=== PATIENT | male | born 1965 | race African-American/Black ===

== ENCOUNTER 2016-03-12 17:08 | Emergency (ER) ==
[2016-03-12 17:17] VITALS: BP 173/99; TEMP 99.7; BMI 64.5
[2016-03-12] MEDS ORDERED: DECADRON 4 MG/ML SDV IM STA (17:23)
--- NOTE | 2016-03-12 17:47 | ED.PDOC ---
General ED Provider: Dr. NICOLE PINZON Chief Complaint: Respiratory Complaint Stated Complaint: cough, cold symptoms Time Seen by Physician: 17:11 Mode of Arrival: Walk-In Information Source: Patient Exam Limitations: No limitations Primary Care Provider: VANDANA LEE Nursing and Triage Documentation Reviewed and Agree: Yes Respiratory Complaint Exam - Respiratory Complaint/Exam Onset/Duration: 1 week Symptoms Are: Still present Timing: Intermittent Initial Severity: Moderate Current Severity: Mild Location: Throat Character: Reports: Non-productive cough Aggravating: Reports: Weather Alleviating: Reports: None Associated Signs and Symptoms: Reports: Nasal congestion, Sinus discomfort, Sore throat. Denies: Rapid breathing, Dyspnea, Fever, Chills, Chest pain, Pleuritic chest pain, Wheezing, Hemoptysis, Dizziness, Calf pain, Calf swelling , Edema, URI, Hoarseness, Vomiting, Weight loss, Decreased oral intake, Increased thirst, Increased appetite, Increased urination Related History: Reports: Similar episode History of Healthcare-Acquired Pneumonia: No Related Surgical History: Reports: None Pulmonary Embolism Risk Factors: None Pseudomonas Risk Factors: Reports: None Tuberculosis Risk Factors: Reports: None Status Asthmaticus Risk Factors: Reports: None Home Oxygen Use: No Recent Stress Test: No Recent Echo/LV Function: No Current Antibiotic Use: No Current Asthma Medication Use: No Respiratory Distress: None Inadequate Respiratory Effort: No Dysphagia Present: No Stridor Present: No JVD Present: No Accessory Muscle Use: No Retractions: Not Present Diminished Breath Sounds: No Sinus Tenderness: None Grunting Respirations: No Kussmaul Respirations: No Differential Diagnoses: Pneumonia, Bronchitis, Lower Resp. Infection Review of Systems - Review Of Systems Constitutional: Reports: No symptoms Eyes: Reports: No symptoms Ears, Nose, Mouth, Throat: Reports: No symptoms Respiratory: Reports: Cough Cardiac: Reports: No symptoms GI: Reports: No symptoms : Reports: No symptoms Musculoskeletal: Reports: No symptoms Skin: Reports: No symptoms Neurological: Reports: No symptoms Endocrine: Reports: No symptoms Hematologic/Lymphatic: Reports: No symptoms All Other Systems: Reviewed and Negative Past Medical History - Past Medical History Endocrine: Reports: None Cardiovascular: Reports: None Respiratory: Reports: None Hematological: Reports: None Gastrointestinal: Reports: None Genitourinary: Reports: None Neuro/Psych: Reports: None Musculoskeletal: Reports: Back Pain, Joint Pain Cancer: Reports: None Other Pertinent Past Medical History: Obesity - Surgical History General Surgical History: Reports: Tonsillectomy, Adenoidectomy - Family History Family History: Reports: Other (Obesity ) - Social History Smoking Status: Former smoker Hx Substance Use: No Alcohol Screening: Occasionally Physical Exam - Physical Exam Appearance: Well-appearing, No pain distress, Well-nourished Eyes: OBDULIA, EOMI, Conjunctiva clear ENT: Ears normal, Nose normal, Oropharynx normal Respiratory: Airway patent, Breath sounds clear, Breath sounds equal, Respirations nonlabored Cardiovascular: RRR, Pulses normal, No rub, No murmur GI/: Soft, Nontender, No masses, Bowel sounds normal, No Organomegaly Musculoskeletal: Normal strength, ROM intact, No edema, No calf tenderness Skin: Warm, Dry, Normal color Neurological: Sensation intact, Motor intact, Reflexes intact, Cranial nerves intact, Alert, Oriented Psychiatric: Affect appropriate, Mood appropriate Critical Care Note - Critical Care Note Total Time (mins): 0 Course - Course Orders, Labs, Meds: Orders Category Date Time Status STREP SCREEN Stat LAB 03/12/16 17:25 Received Dexamethasone 4 mg/ml Inj [Decadron 4 mg/ml Sdv] MEDS 03/12/16 17:23 Discontinued 8 mg IM ONCE STA CHEST, 2 VIEWS PA & LAT Stat RADS 03/12/16 17:23 Taken Medications Discontinued Medications Generic Name Dose Route Start Last Admin Trade Name Mansi PRN Reason Stop Dose Admin Dexamethasone Sodium Phosphate 8 mg 03/12/16 17:23 03/12/16 17:43 Decadron 4 Mg/Ml Sdv IM 03/12/16 17:24 8 mg ONCE STA Administration Vital Signs: Temp Pulse Resp BP Pulse Ox 03/12/16 17:09 99.7 F H 77 20 173/99 H 94 L Departure - Departure Time of Disposition: 18:00 Disposition: HOME SELF-CARE Discharge Problem: Bronchitis Instructions: Acute Bronchitis (ED) Condition: Good Pt referred to PMD for follow-up: No Additional Instructions: Please call your Family Physician as soon as possible to schedule a follow-up appointment. Allergies/Adverse Reactions: Allergies moxifloxacin HCl [From Avelox] Adverse Reaction (Verified 03/12/16 17:18) Home Medications: Ambulatory Orders Ibuprofen 800 mg PO TID #30 tablet 01/23/15 Medical Marijuana 1 gm INH DIRECTED PRN 01/23/15
--- NOTE | 2016-03-12 23:43 | DI ---
EXAM: Chest, two views, 03/12/2016 HISTORY: Cough COMPARISON: None. FINDINGS / IMPRESSION: Cardiomediastinal contours appear within normal limits. No pulmonary consol idation, effusion or pneumothorax No acute cardiopulmonary process.
== END 2016-03-12 18:08 | disposition home or self-care (01) ==
LOC: ED 17:08
DX: J20.9 Acute bronchitis, unspecified (principal)
CPT/HCPCS: 87651; 87880; 96372; 99282

== ENCOUNTER 2017-02-01 13:42 | Emergency (ER) | payer OTHER ==
[2017-02-01 13:42] VITALS: BMI 67.3
[2017-02-01 13:48] VITALS: TEMP 98.6
--- NOTE | 2017-02-01 14:51 | ED.PDOC ---
General ED Provider: Dr. ALBARO VELASQUEZ Chief Complaint: Hypertension Stated Complaint: "Bubbly feeling in ears when blowing nose"; congestion, scratchy throat; also hypertension while at [facility] earlier. Time Seen by Physician: 14:30 Mode of Arrival: Walk-In Information Source: Patient Exam Limitations: No limitations Primary Care Provider: VANDANA LEE Nursing and Triage Documentation Reviewed and Agree: Yes Review of Systems - Review Of Systems Constitutional: Reports: Chills Ears, Nose, Mouth, Throat: Reports: Ear pain, Nose discharge Respiratory: Reports: Cough Cardiac: Reports: No symptoms All Other Systems: Reviewed and Negative Past Medical History - Past Medical History Endocrine: Reports: None Cardiovascular: Reports: None Respiratory: Reports: None Hematological: Reports: None Gastrointestinal: Reports: None Genitourinary: Reports: None Neuro/Psych: Reports: None Musculoskeletal: Reports: Back Pain, Joint Pain Cancer: Reports: None Other Pertinent Past Medical History: Obesity - Surgical History General Surgical History: Reports: Tonsillectomy, Adenoidectomy - Family History Family History: Reports: Other (Obesity ) - Social History Smoking Status: Former smoker Hx Substance Use: No Alcohol Screening: Occasionally Physical Exam - Physical Exam Appearance: Well-appearing Eyes: OBDULIA, EOMI ENT: Ears normal Neck: Supple Respiratory: Airway patent, Breath sounds clear, Breath sounds equal Cardiovascular: RRR, Pulses normal GI/: Soft, Nontender Musculoskeletal: Normal strength, ROM intact Skin: Warm, Dry, Normal color Neurological: Sensation intact, Motor intact Psychiatric: Affect appropriate, Mood appropriate Interpretation - EKG Interpretation Time of EKG #1: 18:04 Rate: Normal Rhythm: Sinus Ectopy: None ST Segment: Normal Interpretation: 1st degree block; no acute changes Re-Evaluation - Re-Evaluation Time of Re-Evaluation: 17:30 Status: Improved (Blood pressure still concerning Mom and patient; reassurred patient that readings at that time were not concerning for emergent HTN) Vital Signs Stable: Yes Appearance: NAD Lungs: Clear Neuro: Alert and Oriented X3 Physician Notification - Case Discussed Physician Notified: Dr. Jackson for Dr. Lee Time of Notification: 17:50 (Set forth plan to monitor BP and F/U with Dr. Lee) Critical Care Note - Critical Care Note Total Time (mins): 10 Course - Course Orders, Labs, Meds: Lab Review 02/01/17 15:28 Influenza A (Rapid) Negative Influenza B (Rapid) Negative Orders Category Date Time Status EKG-(ED ONLY) Stat CARDIO 02/01/17 17:58 Completed MOLECULAR GROUP A STREP Stat LAB 02/01/17 15:28 Results RAPID FLU A/B Stat LAB 02/01/17 15:28 Completed STREP SCREEN Stat LAB 02/01/17 15:28 Results Meclizine HCl [Antivert] MEDS 02/01/17 16:01 Discontinued 25 mg PO ONCE STA Medications Discontinued Medications Generic Name Dose Route Start Last Admin Trade Name Freq PRN Reason Stop Dose Admin Meclizine HCl 25 mg 02/01/17 16:01 02/01/17 16:09 Antivert PO 02/01/17 16:02 Not Given ONCE STA Re[prted negative Strep Vital Signs: Temp Pulse Resp BP Pulse Ox 02/01/17 15:27 56 L 129/67 02/01/17 13:42 98.6 F 68 20 199/126 H 97 Departure - Departure Time of Disposition: 15:57 Disposition: HOME SELF-CARE Discharge Problem: Viral illness Instructions: Upper Respiratory Infection (ED) Condition: Good Pt referred to PMD for follow-up: Yes (Call for appointment) Additional Instructions: Tylenol and/or Ibuprofen for fever or discomfiture. Follow up with primary care as needed; call for appointment. Fill prescription for Catapres 0.1 mg; get BP machine - take medication and recheck BP after 30 minutes. If BP is 170 over 90, or above, take another Catapres and repeat BP in 30 minutes. Document each reading and take Catapres as needed to maintain BP as planned. Make appointment with Dr. Lee - preferably with 3 days of BP readings in order to get regular BP medication/diagnosis. Allergies/Adverse Reactions: Allergies moxifloxacin HCl [From Avelox] Adverse Reaction (Verified 02/01/17 13:50) Home Medications: Ambulatory Orders Ibuprofen 800 mg PO TID #30 tablet 01/23/15 Medical Marijuana 1 gm INH DIRECTED PRN 01/23/15 Disposition Discussed With: Patient
[2017-02-01 15:28] VITALS: BP 129/67
[2017-02-01 15:53] LABS: FLU INTERNAL QC INTERNAL QC VALID; RAPID FLU A NEGATIVE (NEGATIVE); RAPID FLU B NEGATIVE (NEGATIVE)
[2017-02-01] MEDS: ANTIVERT PO STA (16:09)
== END 2017-02-01 18:25 | disposition home or self-care (01) ==
LOC: ED 13:42
DX: B34.9 Viral infection, unspecified (principal); I10 Essential (primary) hypertension; E66.9 Obesity, unspecified
CPT/HCPCS: 87651; 87804; 87880; 93005; 93010; 99283

== ENCOUNTER 2017-02-08 16:44 | Emergency (ER) ==
[2017-02-08 16:50] VITALS: BP 139/88; TEMP 98.6; BMI 65.9
--- NOTE | 2017-02-08 18:12 | ED.PDOC ---
General <VANDANA BAKER - Last Filed: 02/08/17 20:35> Stated Complaint: patient states he had sinus infection 3 weeks ago. now is in his chest and headache with sore throat. also has been battling high blood pressure. was seen in er and given clonidine for blood pressure. he was also seen at [facility] and all tests were ok. he was placed on antibiotic and was doing better until this morning he started having bodyaches and chills then sweating. states he is unsure if he has run a fever. [ End ]98.6 63 20 98% 139/88 nifedipine cefdinir mm ibup Time Seen by Physician: 18:14 Mode of Arrival: Walk-In Information Source: Patient, Family Exam Limitations: No limitations Nursing and Triage Documentation Reviewed and Agree: No Reviewed sepsis parameters & appropriate labs ordered?: No System Inflammatory Response Syndrome: Not Applicable System Inflammatory Response Syndrome: Not Applicable <JOHN PRUITT JR - Last Filed: 02/08/17 20:47> ED Provider: Dr. JOHN PRUITT JR Chief Complaint: Hypertension Primary Care Provider: VANDANA LEE Sepsis Protocol: For patient's 13 years and over: Temp is 96.8 and below OR 101 and greater Pulse >90 BPM Resp >20/minute Acutely Altered Mental Status Are patient's symptoms suggestive of a new infection, such as: -Pneumonia -Skin, Soft Tissue -Endocarditis -UTI -Bone, Joint Infection -Implantable Device -Acute Abdominal Infection -Wound Infection -Meningitis -Blood Stream Catheter Infection -Unknown Review of Systems - Review Of Systems Constitutional: Reports: Chills, Fever Eyes: Reports: No symptoms Ears, Nose, Mouth, Throat: Reports: No symptoms Respiratory: Reports: Cough Cardiac: Reports: No symptoms GI: Reports: No symptoms : Reports: No symptoms Musculoskeletal: Reports: No symptoms Skin: Reports: No symptoms Neurological: Reports: No symptoms Endocrine: Reports: No symptoms Hematologic/Lymphatic: Reports: No symptoms All Other Systems: Reviewed and Negative <VANDANA BAKER - Last Filed: 02/08/17 20:35> Past Medical History - Past Medical History Previously Healthy: No Endocrine: Reports: Other Cardiovascular: Reports: Hypertension Respiratory: Reports: Unknown Hematological: Reports: Unknown Gastrointestinal: Reports: Unknown Genitourinary: Reports: Unknown Neuro/Psych: Reports: Unknown Musculoskeletal: Reports: Unknown Cancer: Reports: Unknown - Surgical History General Surgical History: Reports: Unknown - Family History Family History: Reports: Unknown <VANDANA BAKER - Last Filed: 02/08/17 20:35> - Past Medical History Endocrine: Reports: None Cardiovascular: Reports: None Respiratory: Reports: None Hematological: Reports: None Gastrointestinal: Reports: None Genitourinary: Reports: None Neuro/Psych: Reports: None Musculoskeletal: Reports: Back Pain, Joint Pain Cancer: Reports: None Other Pertinent Past Medical History: Obesity - Surgical History General Surgical History: Reports: Tonsillectomy, Adenoidectomy - Family History Family History: Reports: Other (Obesity ) - Social History Smoking Status: Former smoker Hx Substance Use: No Alcohol Screening: Occasionally <JOHN PRUITT JR - Last Filed: 02/08/17 20:47> Physical Exam - Physical Exam Appearance: Well-appearing, No pain distress, Well-nourished Eyes: OBDULIA, EOMI, Conjunctiva clear, Conjunctiva pale ENT: Ears normal Neck: Supple Respiratory: Crackles, Rhonchi Cardiovascular: RRR, Pulses normal, No rub, No murmur GI/: Soft, Nontender, No masses, Bowel sounds normal, No Organomegaly Musculoskeletal: Normal strength, ROM intact, No edema, No calf tenderness Skin: Warm, Dry, Normal color Neurological: Sensation intact Psychiatric: Affect appropriate <VANDANA BAKER - Last Filed: 02/08/17 20:35> Interpretation - Radiology Interpretation Radiology Interpretation By: Radiologist Radiology Results: Negative <VANDANA BAKER - Last Filed: 02/08/17 20:35> Critical Care Note - Critical Care Note Total Time (mins): 0 <VANDANA BAKER - Last Filed: 02/08/17 20:35> Course - Course Hematology/Chemistry: 02/08/17 19:00 02/08/17 19:00 <VANDANA BAKER - Last Filed: 02/08/17 20:35> - Course Hematology/Chemistry: 02/08/17 19:00 02/08/17 19:00 <JOHN PRUITT JR - Last Filed: 02/08/17 20:47> - Course Orders, Labs, Meds: Lab Review 02/08/17 02/08/17 02/08/17 18:50 19:00 19:00 WBC 14.30 H RBC 5.63 Hgb 14.1 Hct 42.8 MCV 76.0 L MCH 25.0 L MCHC 32.9 RDW Coeff of Charbel 14.6 Plt Count 323 Immature Gran % (Auto) 0.5 Neut % (Auto) 68.1 Lymph % (Auto) 24.7 [place] % (Auto) 5.5 Eos % (Auto) 0.8 Baso % (Auto) 0.4 Immature Gran # (Auto) 0.1 Neut # 9.7 H Lymph # 3.5 H [place] # 0.8 Eos # 0.1 Baso # 0.1 Puncture Site Rrad O2 Saturation 96.0 ABG pH 7.452 H ABG pCO2 36.9 ABG pO2 78.0 L ABG HCO3 25.8 ABG Total CO2 27 ABG Base Excess 2 Trip Test + FiO2 % 21.0 Sodium 140 Potassium 3.5 Chloride 106 Carbon Dioxide 22 Anion Gap 15.5 BUN 9 Creatinine 0.73 Estimated GFR (MDRD) 138.00 BUN/Creatinine Ratio 12.32 Glucose 96 Calcium 9.1 Total Bilirubin 0.6 AST 19 ALT 9 L Alkaline Phosphatase 86 Total Protein 6.5 Albumin 3.4 Globulin 3.1 Albumin/Globulin Ratio 1.10 Urine Color Urine Clarity Urine pH Ur Specific Miller Urine Protein Urine Glucose (UA) Urine Ketones Urine Blood Urine Nitrite Urine Bilirubin Urine Urobilinogen Ur Leukocyte Esterase Influenza A (Rapid) Influenza B (Rapid) 02/08/17 02/08/17 19:04 19:27 WBC RBC Hgb Hct MCV MCH MCHC RDW Coeff of Charbel Plt Count Immature Gran % (Auto) Neut % (Auto) Lymph % (Auto) [place] % (Auto) Eos % (Auto) Baso % (Auto) Immature Gran # (Auto) Neut # Lymph # [place] # Eos # Baso # Puncture Site O2 Saturation ABG pH ABG pCO2 ABG pO2 ABG HCO3 ABG Total CO2 ABG Base Excess Trip Test FiO2 % Sodium Potassium Chloride Carbon Dioxide Anion Gap BUN Creatinine Estimated GFR (MDRD) BUN/Creatinine Ratio Glucose Calcium Total Bilirubin AST ALT Alkaline Phosphatase Total Protein Albumin Globulin Albumin/Globulin Ratio Urine Color Yellow Urine Clarity Clear Urine pH 8.0 Ur Specific Miller 1.015 Urine Protein Negative Urine Glucose (UA) Negative Urine Ketones Negative Urine Blood Negative Urine Nitrite Negative Urine Bilirubin Negative Urine Urobilinogen 0.2 Ur Leukocyte Esterase Negative Influenza A (Rapid) Negative Influenza B (Rapid) Negative Orders Category Date Time Status ABG DRAW REQUEST Stat CARDIO 02/08/17 18:51 Completed IV [ED IV/MEDIPORT/POWERPORT] .ONCE EMERGENCY 02/08/17 20:37 Active ABG Stat LAB 02/08/17 18:50 Completed BLOOD CULTURE (ED ONLY) Stat LAB 02/08/17 19:00 Received CBC W/ AUTO DIFF Stat LAB 02/08/17 19:00 Completed COMPREHENSIVE METABOLIC PANEL Stat LAB 02/08/17 19:00 Completed MOLECULAR GROUP A STREP Stat LAB 02/08/17 19:04 Results RAPID FLU A/B Stat LAB 02/08/17 19:04 Completed STREP SCREEN Stat LAB 02/08/17 19:04 Results URINALYSIS C & S IF INDICATED Stat LAB 02/08/17 19:27 Completed 0.9 % Sodium Chloride [Saline Flush] MEDS 02/08/17 20:37 Ordered 1 syr IVF PRN PRN Ceftriaxone Sodium [Rocephin] 1 gm MEDS 02/08/17 20:37 Active 0.9 % Sodium Chloride [Sodium Chloride] 50 ml IV ONCE Hydromorphone HCl [Dilaudid 1 mg/ml Syringe] MEDS 02/08/17 20:38 Discontinued 1 mg IVP ONCE STA Ketorolac Tromethamine [Toradol] MEDS 02/08/17 20:38 Discontinued 30 mg IVP ONCE STA Sodium Chloride 0.9% [Sodium Chloride] 1,000 ml MEDS 02/08/17 20:37 Active IV 100 mls/hr CXR [CHEST, 2 VIEWS PA & LAT] Stat RADS 02/08/17 18:57 Completed Medications Generic Name Dose Route Start Last Admin Trade Name Freq PRN Reason Stop Dose Admin Ceftriaxone Sodium 1 gm/ 50 mls @ 75 mls/hr 02/08/17 20:37 Sodium Chloride IV 02/08/17 21:16 ONCE STA Sodium Chloride 1,000 mls @ 100 mls/hr 02/08/17 20:37 Sodium Chloride IV 02/09/17 06:36 .Q10H STA Sodium Chloride 1 syr 02/08/17 20:37 Saline Flush IVF PRN PRN To flush IV Discontinued Medications Generic Name Dose Route Start Last Admin Trade Name Freq PRN Reason Stop Dose Admin Hydromorphone HCl 1 mg 02/08/17 20:38 Dilaudid 1 Mg/Ml Syringe IVP 02/08/17 20:39 ONCE STA Ketorolac Tromethamine 30 mg 02/08/17 20:38 Toradol IVP 02/08/17 20:39 ONCE STA Vital Signs: Temp Pulse Resp BP Pulse Ox 02/08/17 16:45 98.6 F 63 20 139/88 98 Departure - Departure Time of Disposition: 20:36 Pt referred to PMD for follow-up: Yes Transfer Form Completed: Yes Disposition Discussed With: Patient, Family <VANDANA BAKER - Last Filed: 02/08/17 20:35> <JOHN PRUITT JR - Last Filed: 02/08/17 20:47> - Departure Disposition: TSF SHORT-TRM HOSP Discharge Problem: Pneumonia Qualifiers: Pneumonia type: due to unspecified organism Laterality: unspecified laterality Lung location: unspecified part of lung Qualified Code(s): J18.9 - Pneumonia, unspecified organism Instructions: Pneumonitis (ED) Condition: Good Allergies/Adverse Reactions: Allergies moxifloxacin HCl [From Avelox] Adverse Reaction (Verified 02/08/17 16:50) Home Medications: Ambulatory Orders Ibuprofen 800 mg PO TID #30 tablet 01/23/15 Medical Marijuana 1 gm INH DIRECTED PRN 01/23/15 Cefdinir 300 mg PO BID 02/08/17 Nifedipine [Nifedipine ER] 30 mg PO DAILY 02/08/17
[2017-02-08 19:09] LABS: ABG BASE EXCESS 2 (-2.0-2.0); ABG PCO2 36.9 mmHg (35-45); ABG PH 7.452 (7.35-7.45)
[2017-02-08 19:10] LABS: ABG HCO3 25.8 (22.0-26.0); ABG TCO2 27 (22.0-28.0)
[2017-02-08 19:27] LABS: BASOPHILS # (AUTO) 0.1 K/uL (0-0.2); BASOPHILS % (AUTO) 0.4 % (0.0-3.0); EOSINOPHILS # (AUTO) 0.1 K/ul (0.0-0.7); EOSINOPHILS % (AUTO) 0.8 % (0.0-7.0); HEMATOCRIT 42.8 % (42.0-52.0); HEMOGLOBIN 14.1 g/dl (14.0-18.0); IMMATURE GRANULOCYTE % (AUTO) 0.5 % (0.0-5.0); LYMPHOCYTES # (AUTO) 3.5 K/uL (0.60-3.4); LYMPHOCYTES % (AUTO) 24.7 (10.0-50.0); MEAN CORPUSCULAR HGB CONC 32.9 (31.8-35.4); MONOCYTES # (AUTO) 0.8 K/uL (0.4-2.0); MONOCYTES % (AUTO) 5.5 (0-10); NEUTROPHILS # (AUTO) 9.7 K/ul (2.0-6.9); NEUTROPHILS % (AUTO) 68.1; PLATELET COUNT 323 10^3/uL (140-440); RED BLOOD COUNT 5.63 10^6/ul (4.70-6.10)
[2017-02-08 19:44] LABS: FLU INTERNAL QC INTERNAL QC VALID; MOLECULAR FLU A NEGATIVE (NEGATIVE); MOLECULAR FLU B NEGATIVE (NEGATIVE)
[2017-02-08 19:51] LABS: ALBUMIN 3.4 g/dL (3.4-5.0); ALBUMIN/GLOBULIN RATIO 1.1; ANION GAP 15.5; BILIRUBIN,TOTAL 0.6 mg/dL (0.00-1.20); BUN/CREATININE RATIO 12.32; CALCIUM 9.1 mg/dL (8.2-10.2); CREATININE 0.73 mg/dL (0.60-1.10); POTASSIUM 3.5 mmol/L (3.5-5.1); TOTAL PROTEIN 6.5 g/dL (6.4-8.2)
--- NOTE | 2017-02-08 19:52 | DI ---
EXAM: Chest two views HISTORY: Cough, fever, nausea COMPARISON: 03/12/2016 TECHNIQUE: Two views of the chest were performed FINDINGS: There is lower airway bronchial wall thickening. There is no focal airspace consolidation . There is no pleural effusion or pneumothorax. The heart is normal in size. The mediastinal contou r is normal. There is no acute abnormality of the bones. IMPRESSION: Lower airway thickening may represent reactive airways disease or bronchiolitis. No foc al airspace consolidation.
[2017-02-08 19:54] LABS: BILIRUBIN,URINE Negative (NEGATIVE); KETONES,URINE Negative (NEGATIVE); LEUKOCYTE ESTERASE ,URINE Negative (NEGATIVE); NITRITE,URINE Negative (NEGATIVE); PROTEIN,URINE Negative (NEGATIVE); URINE, BLOOD Negative (NEGATIVE)
[2017-02-08 19:55] LABS: ADD URINE MICROSCOPIC NO
[2017-02-08] MEDS ORDERED: ROCEPHIN 1 GM in SODIUM CHLORIDE 50 ML IV STA (20:37)
[2017-02-08] MEDS ORDERED: SODIUM CHLORIDE 1,000 ML IV STA (20:37)
[2017-02-08] MEDS ORDERED: DILAUDID 1 MG/ML SYRINGE IVP STA (20:38)
[2017-02-08] MEDS ORDERED: TORADOL IVP STA (20:38)
[2017-02-08] MEDS ORDERED: ROCEPHIN ONE (21:13)
[2017-02-08] MEDS ORDERED: ZOFRAN 4 MG/2 ML IVP STA (21:22)
[2017-02-08] MEDS ORDERED: ZOFRAN 4 MG/2 ML ONE (21:23)
== END 2017-02-08 21:25 | disposition short-term general hospital (02) ==
LOC: ED 16:44
DX: J18.9 Pneumonia, unspecified organism (principal); I10 Essential (primary) hypertension
CPT/HCPCS: 36415; 80053; 81001; 82803; 85025; 87040; 87651; 87804; 87880; 96361; 96365; 96375; 99285

== ENCOUNTER 2017-06-12 10:32 | Day surgery (SDC) ==
[2017-06-12] MEDS ORDERED: LIDOCAINE 1% 20 ML MDV ID STA (11:10)
[2017-06-12] MEDS ORDERED: DIPRIVAN 20 ML VIAL IVP ONE (12:25)
[2017-06-12] MEDS ORDERED: VERSED ONE (12:25)
[2017-06-12 14:48] VITALS: BP 127/56; TEMP 98.5
--- NOTE | 2017-06-13 13:17 | OP ---
INDICATIONS FOR PROCEDURE: 52-year-old gentleman presents for colonoscopy examination. He has a history of adenomatous polyps. There is a family history of polyps involving his mother. MEDICATIONS: SEE ANESTHESIA NOTES. PROCEDURE: COLONOSCOPY, SNARE POLYPECTOMY. REPORT: The risks, benefits, alternatives and limitations were discussed in detail with the patient. Informed consent was obtained. After adequate sedation was achieved, a digital rectal exam revealed good tone, no masses. The colonoscope was introduced into the rectum and advanced under direct visual guidance to the cecum. The cecum was identified by the appendiceal orifice and IC valve. While advancing the scope, I encountered a semi sessile polyp about 6 mm in size in her very proximal transverse colon. I removed this by snare technique. It was retrieved. The polyp was advanced on to the cecum. In the cecum there was a diminutive 4 mm polyp that I destroyed using a snare. I then slowly withdrew the scope in a circumferential manner examining the mucosa quite carefully. I looked on the proximal and distal side of folds and flexures as best as possible. I was able to retroflex the scope in the right colon and left colon to increase visualization. I noted no other abnormalities throughout the entire length of the colon including retroflex view of the anal canal. The prep was adequate to identify polyps 5 mm or greater. The withdrawal time is 9 minutes and 40 seconds. The patient tolerated the procedure well with stable vital signs and pulse oximetry throughout. IMPRESSION: 1. TWO (2) SMALL POLYPS REMOVED OR DESTROYED ABOVE. RECOMMENDATIONS: 1. High fiber diet. 2. Office visit as needed. 3. Colonoscopy examination again in 5 years, sooner if there are any signs or symptoms to indicate otherwise. CC: DR. JESUS HAYWOOD
== END 2017-06-12 13:30 | disposition home or self-care (01) ==
LOC: SURG 10:32
PROVIDERS: ATTEND Internal Medicine Gastroenterology
DX: Z86.010 Personal history of colon polyps (principal); D12.3 Benign neoplasm of transverse colon; K63.5 Polyp of colon; Z83.71 Family history of colonic polyps; Z09 Encounter for follow-up examination after completed treatment for conditions other than malignant neoplasm

== ENCOUNTER 2018-04-25 20:55 | Emergency (ER) | payer OTHER ==
[2018-04-25] MEDS ORDERED: MORPHINE 2 MG/ML SYRINGE IVP STA (20:57)
[2018-04-25] MEDS ORDERED: ZOFRAN 4 MG/2 ML IVP STA (20:57)
[2018-04-25 21:00] VITALS: TEMP 97.9
[2018-04-25] MEDS ORDERED: DILAUDID 1 MG/ML SYRINGE IVP STA ×2 (21:38→22:46)
--- NOTE | 2018-04-25 22:10 | DI ---
EXAM: KUB. HISTORY: Flank pain. FINDINGS: The exam is limited secondary to the patient's body habitus. There is a normal bowel gas p attern. No calcifications identified projecting over the anatomic region of the kidneys or ureters. There are degenerative changes in the spine. Impression: Negative KUB as described.
[2018-04-25 23:36] VITALS: BP 123/61
--- NOTE | 2018-04-25 23:46 | ED.PDOC ---
General ED Provider: Dr. VANDANA LEE-ER Chief Complaint: Kidney Stone Stated Complaint: im hurting and i think i have a kidney stone Time Seen by Physician: 20:55 Mode of Arrival: Walk-In Information Source: Patient, Family Exam Limitations: No limitations Primary Care Provider: VANDANA LEE Nursing and Triage Documentation Reviewed and Agree: Yes Does patient meet sepsis criteria?: No System Inflammatory Response Syndrome: Not Applicable Sepsis Protocol: For patient's 13 years and over: Temp is 96.8 and below OR 101 and greater Pulse >90 BPM Resp >20/minute Acutely Altered Mental Status Are patient's symptoms suggestive of a new infection, such as: -Pneumonia -Skin, Soft Tissue -Endocarditis -UTI -Bone, Joint Infection -Implantable Device -Acute Abdominal Infection -Wound Infection -Meningitis -Blood Stream Catheter Infection -Unknown Review of Systems - Review Of Systems Constitutional: Reports: No symptoms Eyes: Reports: No symptoms Ears, Nose, Mouth, Throat: Reports: No symptoms Respiratory: Reports: No symptoms Cardiac: Reports: No symptoms GI: Reports: Abdominal pain, Nausea : Reports: No symptoms, Flank pain, Pain Musculoskeletal: Reports: Back pain Skin: Reports: No symptoms Neurological: Reports: No symptoms Endocrine: Reports: No symptoms Hematologic/Lymphatic: Reports: No symptoms All Other Systems: Reviewed and Negative Past Medical History - Past Medical History Previously Healthy: No Endocrine: Reports: None Cardiovascular: Reports: None Respiratory: Reports: None Hematological: Reports: None Gastrointestinal: Reports: None Genitourinary: Reports: None Neuro/Psych: Reports: None Musculoskeletal: Reports: Back Pain, Joint Pain Cancer: Reports: None Other Pertinent Past Medical History: Obesity - Surgical History General Surgical History: Reports: Tonsillectomy, Adenoidectomy - Family History Family History: Reports: Other (Obesity ) - Social History Smoking Status: Former smoker Hx Substance Use: No Alcohol Screening: None - Immunizations Tetanus Shot up to Date: Yes Physical Exam - Physical Exam Appearance: Well-appearing, No pain distress, Well-nourished Eyes: OBDULIA, EOMI, Conjunctiva clear ENT: Ears normal, Nose normal, Oropharynx normal Neck: Supple Respiratory: Airway patent, Breath sounds clear, Breath sounds equal, Respirations nonlabored Cardiovascular: RRR, Pulses normal, No rub, No murmur GI/: Soft, Nontender, No masses, Bowel sounds normal, No Organomegaly Musculoskeletal: Normal strength, ROM intact, No edema, No calf tenderness Skin: Warm, Dry, Normal color Neurological: Sensation intact, Motor intact, Reflexes intact, Cranial nerves intact, Alert, Oriented Psychiatric: Affect appropriate, Anxious Interpretation - Radiology Interpretation Radiology Interpretation By: Radiologist Radiology Results: Negative Exam Interpreted: Other (kub) Critical Care Note - Critical Care Note Total Time (mins): 0 Course - Course Hematology/Chemistry: 04/25/18 21:13 04/25/18 21:13 Orders, Labs, Meds: Lab Review 04/25/18 04/25/18 21:13 21:13 WBC 12.03 H RBC 5.00 Hgb 12.3 L Hct 38.9 L MCV 77.8 L MCH 24.6 L MCHC 31.6 L RDW Coeff of Charbel 15.2 H Plt Count 304 Immature Gran % (Auto) 0.3 Neut % (Auto) 71.9 Lymph % (Auto) 19.5 Weber % (Auto) 5.2 Eos % (Auto) 2.5 Baso % (Auto) 0.6 Immature Gran # (Auto) 0.0 Neut # (Auto) 8.6 H Lymph # (Auto) 2.4 Weber # (Auto) 0.6 Eos # (Auto) 0.3 Baso # (Auto) 0.1 Sodium 139.2 Potassium 3.52 Chloride 104.5 Carbon Dioxide 28.4 Anion Gap 9.82 BUN 16.9 Creatinine 1.00 Estimated GFR (MDRD) 95.00 BUN/Creatinine Ratio 16.90 Glucose 120.3 H Calcium 8.97 Total Bilirubin 0.38 AST 27.2 ALT 14.5 Alkaline Phosphatase 82.5 Total Protein 6.61 Albumin 3.66 Globulin 2.95 Albumin/Globulin Ratio 1.24 Orders Category Date Time Status IV [ED IV/MEDIPORT/POWERPORT] .ONCE EMERGENCY 04/25/18 20:56 CBC W/ AUTO DIFF Stat LAB 04/25/18 21:13 Completed COMPREHENSIVE METABOLIC PANEL Stat LAB 04/25/18 21:13 Completed URINALYSIS C & S IF INDICATED Stat LAB 04/25/18 20:56 Uncollected 0.9 % Sodium Chloride [Saline Flush] MEDS 04/25/18 20:56 Ordered 1 syr IVF PRN PRN Hydromorphone HCl [Dilaudid 1 mg/ml Syringe] MEDS 04/25/18 21:38 Discontinued 1 mg IVP ONCE STA Hydromorphone HCl [Dilaudid 1 mg/ml Syringe] MEDS 04/25/18 22:46 Discontinued 1 mg IVP ONCE STA Morphine Sulfate [Morphine 2 mg/ml Syringe] MEDS 04/25/18 20:57 Discontinued 2 mg IVP ONCE STA Ondansetron HCl/Pf [Zofran 4 mg/2 ml] MEDS 04/25/18 20:57 Discontinued 4 mg IVP ONCE STA KUB [ABDOMEN 1 VIEW] Stat RADS 04/25/18 21:38 Completed Medications Generic Name Dose Route Start Last Admin Trade Name Freq PRN Reason Stop Dose Admin Sodium Chloride 1 syr 04/25/18 20:56 Saline Flush IVF PRN PRN To flush IV Discontinued Medications Generic Name Dose Route Start Last Admin Trade Name Freq PRN Reason Stop Dose Admin Hydromorphone HCl 1 mg 04/25/18 21:38 04/25/18 21:43 Dilaudid 1 Mg/Ml Syringe IVP 04/25/18 21:39 1 mg ONCE STA Administration Hydromorphone HCl 1 mg 04/25/18 22:46 04/25/18 23:06 Dilaudid 1 Mg/Ml Syringe IVP 04/25/18 22:47 1 mg ONCE STA Administration Morphine Sulfate 2 mg 04/25/18 20:57 04/25/18 21:16 Morphine 2 Mg/Ml Syringe IVP 04/25/18 20:58 2 mg ONCE STA Administration Ondansetron HCl 4 mg 04/25/18 20:57 04/25/18 21:16 Zofran 4 Mg/2 Ml IVP 04/25/18 20:58 4 mg ONCE STA Administration Vital Signs: Temp Pulse Resp BP Pulse Ox 04/25/18 23:35 97.9 F 59 L 18 123/61 97 04/25/18 20:55 97.9 F 65 18 123/66 95 Departure - Departure Time of Disposition: 23:45 Disposition: TSF SHORT-TRM HOSP Discharge Problem: Flank pain Instructions: Flank Pain (ED) Condition: Good Pt referred to PMD for follow-up: Yes IPMP verified?: No Allergies/Adverse Reactions: Allergies moxifloxacin HCl [From Avelox] Adverse Reaction (Verified 04/25/18 22:43) Swelling THROAT Home Medications: Ambulatory Orders Medical Marijuana 1 gm INH DIRECTED PRN 01/23/15 Losartan/Hydrochlorothiazide [Losartan-Hctz 50-12.5 mg Tab] 1 tab PO DAILY 06/11 Verapamil HCl [Verapamil ER] 240 mg PO DAILY 06/11/17 Transfer Form Completed: Yes Disposition Discussed With: Patient, Family
[2018-04-26 00:07] VITALS: BMI 68.1
== END 2018-04-26 00:40 | disposition short-term general hospital (02) ==
LOC: ED 20:55
DX: R10.9 Unspecified abdominal pain (principal); M54.9 Dorsalgia, unspecified; E66.9 Obesity, unspecified; N28.1 Cyst of kidney, acquired
CPT/HCPCS: 36415; 80053; 81001; 85025; 96374; 96375; 96376; 99285

== ENCOUNTER 2018-05-17 15:00 | Outpatient (RCR) ==
--- NOTE | 2018-05-03 16:25 | RS.OPPTEV2 ---
Date of Note: 05/02/18 Visit #: 1 Number of visits approved by Insurance: n/a Date of Evaluation: 05/02/18 Payer Source: MEDICARE Date of Onset/Injury/Change in Status: 04/19/18 Surgery Performed?: No Treatment Diagnosis: acute R sided LBP History of Condition/Mechanism of Injury:: pt reports he has had a long history of LBP beginning with injury in 1999 however has been manageable until 04/19/18. pt reports he was hospitalized for possible kidney stones however none found. Prior Level of Function.....Patient was independent with: ADL's, Caregiving, Ambulation/Mobility, Community Integration/Access Level of Function: pt is reports he is on disability due to injury in 1999. Functional Limitations: Sleep, Sitting, Standing, Bending, Squatting, Ambulation , Community Access/Integration Current Subjective/complaints:: pt reports he has been in the hospital the past few days in [place]. States his pain is constant. Treatment Side (optional): Right *Precautions: n/a Medical History Medical History: Hypertension, Arthritis Surgical History: Tonsillectomy Surgical History Comments:: appey, knee arthroscopy Smoking Status: Former smoker Hx Home Medications: lortab, did not bring list of other medications Patient's Goals: decrease low back pain Pain Assessment - Pain Description Pain Location: low back pain Pain Description: Aching Current Pain Intensity: 5 Worst Pain Intensity: 8 Functional Outcome Measure Oswestry LBP: 36 - G Codes & Severity Modifier G Codes & Modifier: n/a Source of G Code score: n/a Observation - Observation Posture: Forward Head, Rounded Shoulders, Decreased Lumbar Lordosis Handedness: Right Gait - Gait Pattern Gait Comments: pt amb with increased lat sway General Range of Motion: BUE WFL's. BLE WFL's with pain with hip flex Muscle Strength: BUE 5/5. BLE hip flex 4/5, knee flex/ext 4+/5, ankle DF/PF 4+/ 5 - ROM Lumbar Flexion: Hand reach to Mid-Thighs Sidebending to Left: Reach to Lateral Joint Line Sidebending to Right: Reach to Lateral Joint Line Lumbar Spine ROM Limitations: Soft Tissue Tightness, Muscle Weakness, Pain Comments: pt limited with lumbar ROM flex and lat flex with pain with all ROM. - Strength Trunk Extension: 4- Good- Trunk Flexion: 3- Fair- Trunk Lateral Flexion: 3- Fair- - Special Tests NIMA Test: Positive Right SLR Test: Positive Right Seated Dural Stretch Test: Positive Right Palpation Palpation Findings: Tenderness, Trigger Point, Muscle Guarding Comments:: pt with tenderness, muscle guarding as well as trigger points to R lumbar paraspinal Sensation - Sensation Right Upper Extremity: Intact/Normal Left Upper Extremity: Intact/Normal Right Lower Extremity: Impaired (n/t B feet) Left Lower Extremity: Impaired (n/t feet) Balance - Sitting Balance Static Sitting Balance: Normal Dynamic Sitting Balance: Normal - Standing Balance Static Standing Balance: Good Dynamic Standing Balance: Good - Treatment Modality: Electrical Stim Unattended Parameters/Method Applied: IFC x 20 mins at 24ma Treatment Area: R lumbar area Patient Position: Prone - Heat/Cryotherapy Treatment: Cryotherapy Comments:: lumbar area Interventions - Exercise/Activities/Manual Therapy Exercises/Activities: pt performed pelvic tilt, trunk rotation stretch, pt unable to tolerate further ex due to severe pain. Manual Therapy: n/a HOME EXERCISE PROGRAM: pt given written HEP including pelvic tilt, prone lying, and trunk rotation stretch - Charges Timed Code Treatment Minutes: 42 Total Treatment Time: 61 Procedures billed for this date of service:: eval low, estim unattended Cold pack EVALUATION COMPLEXITY LEVEL EVALUATION COMPLEXITY LEVEL: HISTORY: Low (HTN, OA), EXAM OF BODY SYSTEMS: Medium, CLINICAL PRESENTATION: Low, CLINICAL DECISION MAKING: Low Assessment Assessment: pt presents with low back pain with radiculopathy with muscle tightness B hamstring tightness, limited Lumbar ROM. Feel pt would benefit from skilled PT for therex for stretching, strengthening, as well as modalities to decrease low back pain. Patient Education: Home Exercise Program, Education of Plan of Care Rehab Potential: Good Short Term Goals Goal #1: pt independent with HEP Goal to be met by: 05/23/18 Goal #2: pt with improved B LE hamstring flexibility Goal to be met by: 05/23/18 Goal #3: Improve lumbar ROM WFL's with less pain Goal to be met by: 05/23/18 Jail Goals Goal #1: pt able to perform normal daily activities with less pain Goal to be met by: 06/13/18 Goal #2: No radicular pain RLE Goal to be met by: 06/13/18 Plan - Treatment to be Provided Procedures: Therapeutic Exercises, Manual Therapy, Massage, Patient Education Modalities: Electrical Stimulation, Ultrasound/Phonophoresis, Cryotherapy, Hot Packs Other:: may try mechanical traction - Treatment Plan Frequency: 2-3x a week Duration: 6 weeks Dates of Jail Goals: 06/13/18 Expiration date of current Insurance Approval:: n/a - Treatment Code (1) Lumbar back pain with radiculopathy affecting lower extremity Code(s): M54.16 - RADICULOPATHY, LUMBAR REGION (2) Muscle tightness Code(s): M62.89 - OTHER SPECIFIED DISORDERS OF MUSCLE (3) Muscle weakness Code(s): M62.81 - MUSCLE WEAKNESS (GENERALIZED)
--- NOTE | 2018-05-06 11:27 | RS.OPPTDN ---
Subjective Date of Note: 05/06/18 Visit #: 2 Number of visits approved by Insurance: na Date of Evaluation: 05/02/18 Payer Source: MEDICARE Treatment Diagnosis: acute R sided LBP Current Subjective/complaints:: Patient reports the pain is better than last week,is ," manageable". *Precautions: n/a Pain Assessment - Pain Description Pain Location: R lumbar and upper back today Pain Description: Dull, Aching Current Pain Intensity: 3-4/10 - Treatment Modality: Electrical Stim Unattended Parameters/Method Applied: 20 mins. IFC @ 24-25ma. Patient Position: Prone - Heat/Cryotherapy Treatment: Cryotherapy (concurrent with e-stim) Interventions - Exercise/Activities/Manual Therapy Exercises/Activities: 15 mins. total of prone on elbows,supine LTR ,assisted knees to chest. Total minutes of Exercise: 15 Manual Therapy: 25 mins. total of manual intermittent distraction to lumbar , long axis distraction to the R LE. Total minutes of Manual Therapy: 25 HOME EXERCISE PROGRAM: pt given written HEP including pelvic tilt, prone lying, and trunk rotation stretch - Charges Timed Code Treatment Minutes: 40 Total Treatment Time: 60 Procedures billed for this date of service:: cp,e-stim,ex ,manual 2 Assessment: Patient reports relief with distraction in supine .He reports increased aching in the back with LTR today.He has good hamstring extensibility bilaterally ,no sciatica present today.The pain is localized to the lumbar /R hip. Patient Education: Education of diagnosis, Body/Joint mechanics, Home Exercise Program, Home Safety, Activity Modification, Education of Plan of Care Short Term Goals Goal #1: pt independent with HEP Goal to be met by: 05/23/18 Progress towards Goal:: Progressing Goal #2: pt with improved B LE hamstring flexibility Goal to be met by: 05/23/18 Progress towards Goal:: Progressing Goal #3: Improve lumbar ROM WFL's with less pain Goal to be met by: 05/23/18 Activities Counselor Goals Goal #1: pt able to perform normal daily activities with less pain Goal to be met by: 06/13/18 Goal #2: No radicular pain RLE Goal to be met by: 06/13/18 Plan Dates of Alf Goals: 06/13/18 Expiration date of current Insurance Approval:: na PLAN: Cont. PT to reduce /eliminate LBP.
--- NOTE | 2018-05-09 13:01 | RS.OPPTDN ---
Subjective Date of Note: 05/09/18 Visit #: 3 Number of visits approved by Insurance: na Date of Evaluation: 05/02/18 Payer Source: MEDICARE Treatment Diagnosis: acute R sided LBP Current Subjective/complaints:: Patiernt reports feeling better after last PT session. *Precautions: n/a Pain Assessment - Pain Description Pain Location: R sided lumbar and mid back Pain Description: Dull, Aching Current Pain Intensity: 3-4 - Treatment Modality: Electrical Stim Unattended Parameters/Method Applied: 20 mins. IFC @ 25 to 35 ma to back. Patient Position: Prone - Heat/Cryotherapy Treatment: Cryotherapy (concurrent with e-stim) Interventions - Exercise/Activities/Manual Therapy Exercises/Activities: 15 mins. total of prone on elbows,supine LTR ,assisted knees to chest,pelvic tilts. Total minutes of Exercise: 15 Manual Therapy: 25 mins. total of manual intermittent distraction to lumbar , long axis distraction to the R LE. Total minutes of Manual Therapy: 0 HOME EXERCISE PROGRAM: pt given written HEP including pelvic tilt, prone lying, and trunk rotation stretch - Charges Timed Code Treatment Minutes: 40 Total Treatment Time: 60 Procedures billed for this date of service:: cp,e-stim, ex 2 ,manual Assessment: Patient progressing ,reports les intensity of pain after exercises and modalities.He has no increase back pain with stretches of active motion today. 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 PT to reduce /eliminate LBP,returning to PLOF.
--- NOTE | 2018-05-10 11:29 | RS.OPPTDN ---
Subjective Date of Note: 05/10/18 Visit #: 4 Number of visits approved by Insurance: na Date of Evaluation: 05/02/18 Payer Source: MEDICARE Treatment Diagnosis: acute R sided LBP Current Subjective/complaints:: Patient reports he continues to feel better,and the pain he was having initially is basically gone. *Precautions: n/a Pain Assessment - Pain Description Pain Location: R lumbar and mid back Pain Description: Dull, Aching Pain Description: minimal Current Pain Intensity: not rated - Treatment Modality: Electrical Stim Unattended Parameters/Method Applied: 20 mins. IFC @ 29 - 36 ma to lumbar and mid back Patient Position: Prone - Heat/Cryotherapy Treatment: Cryotherapy (concurrent with e-stim) Interventions - Exercise/Activities/Manual Therapy Exercises/Activities: HEP review of pelvic tilts,knees to chest,SLR's,90/90 hams. stretches. Total minutes of Exercise: 0 Manual Therapy: 35 mins. total of manual intermittent distraction to lumbar , single leg and bilaterally. Total minutes of Manual Therapy: 35 HOME EXERCISE PROGRAM: pt given written HEP including pelvic tilt, prone lying, and trunk rotation stretch - Charges Timed Code Treatment Minutes: 35 Total Treatment Time: 55 Procedures billed for this date of service:: cp,e-stim ,manual 2 Assessment: Progressing well,less intensity of back pain ,and for longer duration.He has good understanding of HEP. Patient Education: Education of diagnosis, Body/Joint mechanics, Home Exercise Program, Home Safety, Activity Modification, Education of Plan of Care Patient demonstrates compliance with HEP?: Yes Short Term Goals Goal #1: pt independent with HEP Goal to be met by: 05/23/18 Progress towards Goal:: Progressing Goal #2: pt with improved B LE hamstring flexibility Goal to be met by: 05/23/18 Progress towards Goal:: Met Goal #3: Improve lumbar ROM WFL's with less pain Goal to be met by: 05/23/18 Progress towards Goal:: Progressing Intermediate Goals Goal #1: pt able to perform normal daily activities with less pain Goal to be met by: 06/13/18 Progress towards goal: Progressing Goal #2: No radicular pain RLE Goal to be met by: 06/13/18 Progress towards goal: Progressing Plan Dates of Intermediate Goals: 06/13/18 Expiration date of current Insurance Approval:: na PLAN: Cont. PT to reduce / eliminate back pain.
--- NOTE | 2018-05-13 11:20 | RS.OPPTDN ---
Subjective Date of Note: 05/13/18 Visit #: 5 Number of visits approved by Insurance: na Date of Evaluation: 05/02/18 Payer Source: MEDICARE Treatment Diagnosis: acute R sided LBP Current Subjective/complaints:: Reports the rainy weather has elevated the pain some in the hips area. *Precautions: n/a Pain Assessment - Pain Description Pain Location: lumbar/hips Pain Description: Dull, Aching Current Pain Intensity: 3-4 / 10 - Treatment Modality: Electrical Stim Unattended Parameters/Method Applied: 20 mins. IFC @ 25- 28 ma. to lumbar and upper back. Patient Position: Prone - Heat/Cryotherapy Treatment: Cryotherapy (concurrent with e-stim) Interventions - Exercise/Activities/Manual Therapy Exercises/Activities: N/A today Total minutes of Exercise: 0 Manual Therapy: 35 mins. total of long axis distraction to each LE/hip , then bilateral intermittent manual distraction to lumbar spine. Total minutes of Manual Therapy: 35 HOME EXERCISE PROGRAM: pt given written HEP including pelvic tilt, prone lying, and trunk rotation stretch - Charges Timed Code Treatment Minutes: 35 Total Treatment Time: 55 Procedures billed for this date of service:: cp,e-stim,manual therapy Assessment: Patient is compliant to HEP,continues to get relief after therapy sesions in general.He initially had elevated hip pain today ,he feels due to rainy weather ,but lessened after PT today.He has no radiculopathy today. 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 skilled PT to reduce /eliminate LBP.
--- NOTE | 2018-05-15 11:39 | RS.OPPTDN ---
Subjective Date of Note: 05/15/18 Visit #: 6 Number of visits approved by Insurance: na Date of Evaluation: 05/02/18 Payer Source: MEDICARE Treatment Diagnosis: acute R sided LBP Current Subjective/complaints:: Patient reports the pain is about the same today ,and it occasionally increases later in the day. *Precautions: n/a Pain Assessment - Pain Description Pain Location: lumbar,mid-back Pain Description: Chronic Current Pain Intensity: 3 - Treatment Modality: Electrical Stim Unattended Parameters/Method Applied: 20 mins. IFC @ 35 ma to lumbar and upper/mid-back. Patient Position: Prone - Heat/Cryotherapy Treatment: Cryotherapy (concurrent with e-stim) Interventions - Exercise/Activities/Manual Therapy Exercises/Activities: N/A today Total minutes of Exercise: 0 Manual Therapy: 45 mins. total of bilateral intermittent manual distraction to lumbar spine.SI muscle energy for leg length discrepancy. Total minutes of Manual Therapy: 45 HOME EXERCISE PROGRAM: pt given written HEP including pelvic tilt, prone lying, and trunk rotation stretch - Charges Timed Code Treatment Minutes: 45 Total Treatment Time: 65 Procedures billed for this date of service:: cp,e-stim,manual therapy 2 Assessment: Progressing well,no radiculopathy present today,continues to have pain in the R lumbar and inferior border of R scapula,but less intesne for a longer duration.The L LE appears shorte in supine ,but corrected with SI muscle energy done. 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 PT to return patient to PLOF.
--- NOTE | 2018-05-17 16:22 | RS.OPPTDN ---
Subjective Date of Note: 05/17/18 Visit #: 7 Number of visits approved by Insurance: na Date of Evaluation: 05/02/18 Payer Source: MEDICARE Treatment Diagnosis: acute R sided LBP Current Subjective/complaints:: Reports having a good day,pain is very minimal currently. *Precautions: n/a Pain Assessment - Pain Description Pain Location: lumbar/hips Pain Description: Dull, Aching Current Pain Intensity: not rated - Heat/Cryotherapy Treatment: Cryotherapy (20 mins. prior to ex and manual) Interventions - Exercise/Activities/Manual Therapy Exercises/Activities: Pelvic tilts,SLR's 90/90 hams. stretches. Total minutes of Exercise: 15 Manual Therapy: 25 mins. total of bilateral intermittent manual distraction to lumbar spine. HOME EXERCISE PROGRAM: pt given written HEP including pelvic tilt, prone lying, and trunk rotation stretch - Charges Timed Code Treatment Minutes: 40 Total Treatment Time: 60 Procedures billed for this date of service:: cp,ex,manual 2 Assessment: Progressing well,has less frequency/duration and less intensity of back pain.He has no antalgic gait present ,no elevation of back pain with exercises or manual therapy. Patient Education: Education of diagnosis, Body/Joint mechanics, Home Exercise Program, Home Safety, Activity Modification, Education of Plan of Care Patient demonstrates compliance with HEP?: Yes Short Term Goals Goal #1: pt independent with HEP Goal to be met by: 05/23/18 Progress towards Goal:: Met (Reports doing exercises on a daily basis) Goal #2: pt with improved B LE hamstring flexibility Goal to be met by: 05/23/18 Progress towards Goal:: Met Goal #3: Improve lumbar ROM WFL's with less pain Goal to be met by: 05/23/18 Progress towards Goal:: Progressing Mcfp Goals Goal #1: pt able to perform normal daily activities with less pain Goal to be met by: 06/13/18 Progress towards goal: Progressing Goal #2: No radicular pain RLE Goal to be met by: 06/13/18 Progress towards goal: Met Plan Dates of Mcfp Goals: 06/13/18 Expiration date of current Insurance Approval:: na PLAN: Continue PT ,initiate D/C plan if pain consistently reduces.
== END 2018-05-19 23:59 ==
PROVIDERS: ATTEND Family Medicine
DX: M54.5 Low back pain (principal); M54.16 Radiculopathy, lumbar region; M62.89 Other specified disorders of muscle; M62.81 Muscle weakness (generalized)

== ENCOUNTER 2018-05-30 14:00 | Outpatient (RCR) ==
--- NOTE | 2018-05-21 11:24 | RS.OPPTDN ---
Subjective Date of Note: 05/21/18 Visit #: 8 Number of visits approved by Insurance: na Date of Evaluation: 05/02/18 Payer Source: MEDICARE Treatment Diagnosis: acute R sided LBP Current Subjective/complaints:: Patient reports the back continues to feel better.He does report lumbar and hip weakness is noticed later in the day. *Precautions: n/a Pain Assessment - Pain Description Pain Location: lumbar/hips Pain Description: Dull, Aching Pain Description: minimal Current Pain Intensity: not rated - Heat/Cryotherapy Treatment: Cryotherapy (20 mins. to lumbar and mid-back) Interventions - Exercise/Activities/Manual Therapy Exercises/Activities: Pelvic tilts,SLR's 90/90 hams. stretches. Total minutes of Exercise: 15 Manual Therapy: 15 mins. total of bilateral intermittent manual distraction to lumbar spine. Total minutes of Manual Therapy: 15 HOME EXERCISE PROGRAM: pt given written HEP including pelvic tilt, prone lying, and trunk rotation stretch - Charges Timed Code Treatment Minutes: 30 Total Treatment Time: 50 Procedures billed for this date of service:: cp,ex,manual Assessment: Patient reports no pain after session today.he is progressing well in all areas.He continues to report the pain level is minimal,sometimes absent , also the pain is not radiating into the LE's.He is attentive and compliant to all recommendations of the therapy staff. 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 skilled PT to return patient to PLOF,tolerating ADL's pain free.Initiate D/C plan due to good progress.
--- NOTE | 2018-05-24 13:18 | RS.CXNS ---
Date of scheduled appointment: 05/24/18 Type: No Show Reason for Cancel/NS: Unknown
--- NOTE | 2018-05-30 15:16 | RS.OPPTDN ---
Subjective Date of Note: 05/30/18 Visit #: 9 Number of visits approved by Insurance: na Date of Evaluation: 05/02/18 Payer Source: MEDICARE Treatment Diagnosis: acute R sided LBP Current Subjective/complaints:: Patient reports he called to cancel the appt. last Sunday due to plumbing issues at home ,was transferred to the nursing dept.He is pleased with his progress,agrees with D/c paln today.He has no pain currently. *Precautions: n/a Pain Assessment - Pain Description Pain Location: lumbar when present Current Pain Intensity: 0 - Heat/Cryotherapy Treatment: Cryotherapy (20 mins. prior to manual therapy) Interventions - Exercise/Activities/Manual Therapy Exercises/Activities: Independent with HEP. Total minutes of Exercise: o Manual Therapy: 25 mins. total of bilateral intermittent manual distraction to lumbar spine. Total minutes of Manual Therapy: 25 HOME EXERCISE PROGRAM: pt given written HEP including pelvic tilt, prone lying, and trunk rotation stretch - Charges Timed Code Treatment Minutes: 25 Total Treatment Time: 45 Procedures billed for this date of service:: cp,manual therapy 2 Assessment: Patient progresed well,has angelina all rehab goals.he agrees with D/C plan today. 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
--- NOTE | 2018-05-31 14:03 | RS.OPPTDC ---
Date of Discharge: 05/30/18 Date of Evaluation: 05/02/18 Number of Visits: 9 Treatment Diagnosis: acute R sided LBP Current Level of Function: pt independent with HEP, good hamstring flexibilty BLE. Good lumbar ROM, no radicular pain, HEP of pelvic tilt, SKTC, LTR. Current Complaints/Gains: pt pleased with progress no pain currently. He has occasional twinge of back pain, but less frequent and less intense. Oswestry score 12 Functional Outcome Measure Oswestry LBP: 12 - G Codes & Severity Modifier G Codes & Modifier: n/a Source of G Code score: n/a Observation - Observation Posture: Forward Head Handedness: Right Gait - Gait Pattern General Gait Pattern Observation: No Deviations/Normal Interventions - Exercise/Activities/Manual Therapy Exercises/Activities: Independent with HEP. Manual Therapy: n/a HOME EXERCISE PROGRAM: pt given written HEP including pelvic tilt, prone lying, and trunk rotation stretch - Charges Timed Code Treatment Minutes: n/a Total Treatment Time: n/a Procedures billed for this date of service:: n/a Assessment Assessment: pt much improved with decreased pain and improved flexibility. pt now with no radicular pain. pt has met all goals. Patient Education: Home Exercise Program, Education of Plan of Care Rehab Potential: Good Short Term Goals Goal #1: pt independent with HEP Goal to be met by: 05/23/18 Progress towards Goal:: Met (Reports doing exercises on a daily basis) Goal #2: pt with improved B LE hamstring flexibility Goal to be met by: 05/23/18 Progress towards Goal:: Met Goal #3: Improve lumbar ROM WFL's with less pain Goal to be met by: 05/23/18 Progress towards Goal:: Met Senior Care Goals Goal #1: pt able to perform normal daily activities with less pain Goal to be met by: 06/13/18 Progress towards goal: Met Goal #2: No radicular pain RLE Goal to be met by: 06/13/18 Progress towards goal: Met Plan Reason for Discharge:: All Goals Met
== END 2018-06-18 23:59 ==
PROVIDERS: ATTEND Family Medicine
DX: M54.5 Low back pain (principal); M54.16 Radiculopathy, lumbar region; M62.89 Other specified disorders of muscle; M62.81 Muscle weakness (generalized)

== ENCOUNTER 2018-06-04 17:29 | Outpatient (CLI) | payer OTHER | END 2018-06-04 17:30 | disposition home or self-care (01) | LOC: LAB 17:29 | PROVIDERS: ATTEND Internal Medicine Nephrology | DX: I10 Essential (primary) hypertension (principal); N28.1 Cyst of kidney, acquired; N20.0 Calculus of kidney; M1A.0710 Idiopathic chronic gout, right ankle and foot, without tophus (tophi) | CPT/HCPCS: 36415; 80069; 81001; 82570; 83735; 83970; 84156; 84550; 85027 ==

== ENCOUNTER 2018-10-25 10:28 | Outpatient (CLI) ==
--- NOTE | 2018-10-25 10:49 | US ---
EXAM: Ultrasound of the right axilla. History: Right axillary pain. Technique: Multiple sonographic images through the right axilla were obtained. Color duplex Doppler was used to interrogate vascular flow. Findings: No masses, cysts or fluid collections identified. No lymph nodes are seen. Impression: No sonographic abnormalities
== END 2018-10-25 10:29 | disposition home or self-care (01) ==
LOC: RAD 10:28
PROVIDERS: ATTEND Family Medicine
DX: R22.31 Localized swelling, mass and lump, right upper limb (principal)
CPT/HCPCS: 76882